=== PATIENT | male | born 1940 | race Caucasian/White ===

== ENCOUNTER 2021-03-24 17:26 | Inpatient (IN) | payer MEDICARE ==
[~2021-03-24] VITALS: Ht 160 cm; Wt 65.3 kg
[2021-03-24 17:59] LABS: BASOPHILS PERCENT AUTO 0 % (0-2); EOSINOPHILS PERCENT AUTO 0 % (0-6); Hematocrit 36.5 % (37.0-53.0); Hemoglobin 11.9 g/dL (13.5-17.5); IMMATURE GRAN ABSOLUTE AUTO 0.04 K/mm3 (0.00-0.10); IMMATURE GRAN PERCENT AUTO 1 % (0-1); LYMPHOCYTES ABSOLUTE AUTO 0.34 K/mm3 (0.84-5.20); LYMPHOCYTES PERCENT AUTO 5 % (21-46); MONOCYTES ABSOLUTE AUTO 0.51 K/mm3 (0.16-1.47); MONOCYTES PERCENT AUTO 7 % (4-13); Mean Corpuscular HGB 31.5 pg (26.0-34.0); Mean Corpuscular HGB Conc 32.6 g/dL (31.5-36.5); Mean Corpuscular Volume 97 fL (80-100); Mean Platelet Volume 10.5 fL (9.1-12.4); NEUTROPHILS ABSOLUTE AUTO 6.24 K/mm3 (1.96-9.15); NEUTROPHILS PERCENT AUTO 87 % (41-73); Platelet Count 212 K/mm3 (150-400); RDW Coefficient Variation 14.5 % (11.7-14.2); RDW Standard Deviation 51.3 fL (35.1-46.3); Red Blood Cell Count 3.78 M/mm3 (4.30-5.90); White Blood Cell Count 7.13 K/mm3 (4.00-11.30)
[2021-03-24 18:13] LABS: Albumin, Blood 2.9 g/dL (3.4-5.0); Albumin/Globulin Ratio 0.7 (0.8-1.8); Bilirubin, Total 0.7 mg/dL (0.1-1.0); Bun/Creatinine Ratio 32.9 (12.0-20.0); Calcium, Blood 8.4 mg/dL (8.5-10.1); Creatinine, Blood 1.46 mg/dL (0.60-1.20); Globulin, Blood 3.9 g/dL (2.2-4.0); Potassium, Blood 5.2 mmol/L (3.5-5.5); Total Protein, Blood 6.8 g/dL (6.4-8.2); Troponin I 0.091 ng/mL (0.000-0.040)
[2021-03-24] MEDS ORDERED: CARV6.25 PO (21:47)
[2021-03-24] MEDS ORDERED: Prinivil10 MG PO (21:47)
[2021-03-24] MEDS ORDERED: POTCHL20ER PO (21:48)
[2021-03-24] MEDS ORDERED: PRED AC-MOXI-NEP5 M1 LEFTEYE (21:48)
[2021-03-24 22:16] LABS: International Normalized Ratio 1.36
[2021-03-24] MEDS ORDERED: FURO20 PO (22:35)
--- NOTE | 2021-03-25 04:30 | NUR ---
SHIFT SUMMARY REPORT RECIEVED FROM SAMUEL Vargas RN, PATIENT TO ROOM FROM ED VIA STRETCHER @221 AND SLID TO THE BED. PATIENT ALERT AND ORIENTED X4 ANXIOUS AT TIMES. ABLE TO MOVE SELF BUT NEEDS VERBAL QUES AT TIMES. UPON ARRIVAL PATIENT ON 2L VIA NC 02 SATS 98%, PATIENT HAS EPISODES WHERE HE DESATS TO THE 70s, PATIENT PLACED ON CPAP 10 WITH 3L, TOLERATING WELL. DENIES CP, SR @70s-80s THROUGHT THE NIGHT. PATIENT INCONTINENT OF BLADDER, SPOKE WITH PATIENT ABOUT USING URINAL AND HE AGREED BUT THEN HAD ANOTHER INCONTINENT VOID. BRIEF CHANGES NEEDED. VSS, NO ACUTE CHANGES. CALL LIGHT IN REACH.
[2021-03-25 06:39] LABS: BASOPHILS ABSOLUTE AUTO 0.03 K/mm3 (0.00-0.23); BASOPHILS PERCENT AUTO 0 % (0-2); EOSINOPHILS PERCENT AUTO 0 % (0-6); Hematocrit 37.2 % (37.0-53.0); Hemoglobin 11.7 g/dL (13.5-17.5); IMMATURE GRAN ABSOLUTE AUTO 0.19 K/mm3 (0.00-0.10); IMMATURE GRAN PERCENT AUTO 1 % (0-1); LYMPHOCYTES ABSOLUTE AUTO 0.35 K/mm3 (0.84-5.20); LYMPHOCYTES PERCENT AUTO 2 % (21-46); MONOCYTES ABSOLUTE AUTO 1.12 K/mm3 (0.16-1.47); MONOCYTES PERCENT AUTO 5 % (4-13); Mean Corpuscular HGB 31.1 pg (26.0-34.0); Mean Corpuscular HGB Conc 31.5 g/dL (31.5-36.5); Mean Corpuscular Volume 99 fL (80-100); Mean Platelet Volume 10.5 fL (9.1-12.4); NEUTROPHILS ABSOLUTE AUTO 22.22 K/mm3 (1.96-9.15); NEUTROPHILS PERCENT AUTO 93 % (41-73); NRBC ABSOLUTE 0.03 K/mm3 (0.00-0.02); NRBC Auto 0.1 /100 WBC (0.0-0.2); Platelet Count 168 K/mm3 (150-400); RDW Coefficient Variation 14.6 % (11.7-14.2); RDW Standard Deviation 53.1 fL (35.1-46.3); Red Blood Cell Count 3.76 M/mm3 (4.30-5.90); White Blood Cell Count 23.91 K/mm3 (4.00-11.30)
[2021-03-25 06:49] LABS: Albumin, Blood 2.5 g/dL (3.4-5.0); Albumin/Globulin Ratio 0.6 (0.8-1.8); Bilirubin, Total 0.6 mg/dL (0.1-1.0); Bun/Creatinine Ratio 31.7 (12.0-20.0); Calcium, Blood 8.4 mg/dL (8.5-10.1); Creatinine, Blood 1.86 mg/dL (0.60-1.20); Globulin, Blood 3.9 g/dL (2.2-4.0); Potassium, Blood 5.2 mmol/L (3.5-5.5); Total Protein, Blood 6.4 g/dL (6.4-8.2); Troponin I 0.105 ng/mL (0.000-0.040)
[2021-03-25 11:48] LABS: Source, Urine Clean Catch
[2021-03-25 11:51] LABS: Appearance, Urine Clear (Clear); Bilirubin, Urine Neg (Neg); Blood, Urine Neg (Neg); Color, Urine Yellow (P-Yellow); Glucose Qualitative, Urine Neg (Neg); Ketones, Urine Neg (Neg); Leukocyte Esterase, Urine 1+ (Neg); Nitrite, Urine Neg (Neg); Protein, Urine 2+ (Neg); Specific Gravity, Urine 1.015 (1.003-1.022); Urobilinogen, Urine NORM (Normal)
[2021-03-25 12:27] LABS: Red Blood Cells, Urine 0-2 /hpf (0-2)
[2021-03-25 12:28] LABS: Bacteria Many /hpf; Squamous Epithelial Cells Few /hpf (Few)
--- NOTE | 2021-03-25 12:30 | NUR ---
TRANSFER FROM PCU PT TRANSFERED FROM PCU 12. 80YR MALE ADMITTED WITH CHF, PE AND COVID+. PT ARRIVED VIA BED AND WAS TRANSFERRED TO BED. PT ORIENTED TO ROOM, CALL LIGHT SYSTETM AND FAL PRECAUTIONS SAFETY MEASURES. PT HAD HEPARIN DRIP RUNNING AT 14UNITS AND VERIFIED WITH COUNTER WAITRESS/WAITER. PT A&O, SLOW TO RESPOND AT TIMES.CONDOM CATH IN PLACE DRAINING CLEAR YELLOW URINE. NO C/O PAIN. CONTACTED FOR ORDER CLARIFICATION, CONT PULSE OX D/C AND NPO STATUS CHANGED TO CARDIAC DIET. PT RESTING COMFPRTABLE WITH BED IN LOWEST POSITION AND CALL LIGHT WITHIN REACH
[2021-03-25 14:53] LABS: Troponin I 0.119 ng/mL (0.000-0.040)
--- NOTE | 2021-03-25 16:56 | NUR ---
SHIFT SUMMARY 1639 PT RESTED IN BED, NO C/O. PTT OF 130.6 RECIEVVED AND REPORTED TO PHARMACY. HEPARING DRIPP HELD FOR 1 HOUR AND RESTARTED AT 1639 AT A DECREASED RATE OF 12, VERIFIED WITH LUSTER REPAIRER. NO OTHER CHANGES THIS SHIFT
--- NOTE | 2021-03-26 05:17 | NUR ---
PATIENT ALERT AND RESPONSIVE. PATIENT CONTINUES ON HEPARIN DRIP, LAB CALLED AND REPORTED PTT OF GREATER THAN 139, PAHARMACY WAS NOTIFIED. PHARMACY REQUESTED TO HOLD THE DRIP FOR 1 HOUR. HEPARIN DRIP WAS RESTARTED AT A NEW RATE 10. PATIENT CONTINUE TO BE ANXIOUS ABOUT HIS 02 SATURATIONS. PATIENTS O2 SATS HAVE BEEN IN THE 90s. WILL CONTINUE TO MONITOR.
[2021-03-26 06:38] LABS: BASOPHILS ABSOLUTE AUTO 0.01 K/mm3 (0.00-0.23); BASOPHILS PERCENT AUTO 0 % (0-2); EOSINOPHILS PERCENT AUTO 0 % (0-6); Hematocrit 37.1 % (37.0-53.0); Hemoglobin 12.1 g/dL (13.5-17.5); IMMATURE GRAN ABSOLUTE AUTO 0.11 K/mm3 (0.00-0.10); IMMATURE GRAN PERCENT AUTO 1 % (0-1); LYMPHOCYTES ABSOLUTE AUTO 0.69 K/mm3 (0.84-5.20); LYMPHOCYTES PERCENT AUTO 5 % (21-46); MONOCYTES ABSOLUTE AUTO 0.38 K/mm3 (0.16-1.47); MONOCYTES PERCENT AUTO 3 % (4-13); Mean Corpuscular HGB 30.6 pg (26.0-34.0); Mean Corpuscular HGB Conc 32.6 g/dL (31.5-36.5); Mean Platelet Volume 10.9 fL (9.1-12.4); NEUTROPHILS ABSOLUTE AUTO 14.19 K/mm3 (1.96-9.15); NEUTROPHILS PERCENT AUTO 92 % (41-73); NRBC ABSOLUTE 0.03 K/mm3 (0.00-0.02); NRBC Auto 0.2 /100 WBC (0.0-0.2); Platelet Count 163 K/mm3 (150-400); RDW Coefficient Variation 14.5 % (11.7-14.2); RDW Standard Deviation 50.1 fL (35.1-46.3); Red Blood Cell Count 3.96 M/mm3 (4.30-5.90); White Blood Cell Count 15.38 K/mm3 (4.00-11.30)
[2021-03-26 06:39] LABS: Mean Corpuscular Volume 94 fL (80-100)
[2021-03-26 07:09] LABS: Albumin, Blood 2.6 g/dL (3.4-5.0); Albumin/Globulin Ratio 0.7 (0.8-1.8); Bilirubin, Total 0.7 mg/dL (0.1-1.0); Bun/Creatinine Ratio 37.4 (12.0-20.0); Calcium, Blood 8.1 mg/dL (8.5-10.1); Creatinine, Blood 2.14 mg/dL (0.60-1.20); Globulin, Blood 3.8 g/dL (2.2-4.0); Potassium, Blood 5.1 mmol/L (3.5-5.5); Total Protein, Blood 6.4 g/dL (6.4-8.2)
--- NOTE | 2021-03-26 13:06 | NUR ---
Patient is lying in bed and alert. Patient tells me about his COVID experience and then talks at length about his life history (including his 3 marriages, his [employer] sab[employer] background and his current living situation in [place], [place]). Patient talks about his fears of the virus and his concerns for his family. I normalize his fears, provide therapeutic listening and prayer. Patient responds well and shows signs of increased peace and being encouraged in his sabrina. I will continue to remain available to patient and family.
[2021-03-26 14:37] LABS: Source, Urine Catheter
[2021-03-26 14:43] LABS: Appearance, Urine Clear (Clear); Bilirubin, Urine Neg (Neg); Blood, Urine 2+ (Neg); Color, Urine Yellow (P-Yellow); Glucose Qualitative, Urine Neg (Neg); Ketones, Urine Neg (Neg); Leukocyte Esterase, Urine Neg (Neg); Nitrite, Urine Neg (Neg); Protein, Urine Neg (Neg); Specific Gravity, Urine 1.015 (1.003-1.022); Urobilinogen, Urine NORM (Normal)
[2021-03-26 15:07] LABS: Bacteria Many /hpf; Squamous Epithelial Cells Few /hpf (Few)
--- NOTE | 2021-03-26 18:29 | NUR ---
SHIFT SUMMARY PT RESTED IN BED, NO C/O. HEPARIN DRIP D/C THIS SHIFT AND NEW ORDERS RECIEVED. PT CONT TO BE ANXIOUS T/O SHIFT AND NEW ORDERS RECIEVED. PT MEDICATED WITH 0.5MG OF ATIVAN AND PT REPORTS RELIEF OF HIS ANXIETY. PT UP TO [facility] W FWW SEVERAL TIMES TODAY AND UP IN CHAIR FOR DINNER AND TOLERATED WELL. NO OTHER CHANGES THIS SHIFT.
--- NOTE | 2021-03-27 04:04 | NUR ---
PATIENT ALERT AND ORIEMTED TO SELF. PATIENT NOTED WITH RESTLESS, ANXIETY AND ATTEMPTING TO GET OUT OF BED. PATIENT WAS MEDICTED WITH IV ATIVAN. PATIENT BECAME LESS ANXIOUS AFTER TAKING THE ATIVAN. PATIENT SLEPT WELL, NO COMPLAIN VOICED. PATIENT WAS INCONTINENT OF URINE AND BM. WILL CONTINUE TO MONITOR.
[2021-03-27 04:39] LABS: BASOPHILS ABSOLUTE AUTO 0.01 K/mm3 (0.00-0.23); BASOPHILS PERCENT AUTO 0 % (0-2); EOSINOPHILS PERCENT AUTO 0 % (0-6); Hematocrit 32.1 % (37.0-53.0); Hemoglobin 10.3 g/dL (13.5-17.5); IMMATURE GRAN ABSOLUTE AUTO 0.06 K/mm3 (0.00-0.10); IMMATURE GRAN PERCENT AUTO 1 % (0-1); LYMPHOCYTES ABSOLUTE AUTO 0.24 K/mm3 (0.84-5.20); LYMPHOCYTES PERCENT AUTO 3 % (21-46); MONOCYTES ABSOLUTE AUTO 0.17 K/mm3 (0.16-1.47); MONOCYTES PERCENT AUTO 2 % (4-13); Mean Corpuscular HGB 30.7 pg (26.0-34.0); Mean Corpuscular HGB Conc 32.1 g/dL (31.5-36.5); Mean Corpuscular Volume 96 fL (80-100); Mean Platelet Volume 11.3 fL (9.1-12.4); NEUTROPHILS ABSOLUTE AUTO 7.94 K/mm3 (1.96-9.15); NEUTROPHILS PERCENT AUTO 94 % (41-73); NRBC ABSOLUTE 0.02 K/mm3 (0.00-0.02); NRBC Auto 0.2 /100 WBC (0.0-0.2); Platelet Count 131 K/mm3 (150-400); RDW Coefficient Variation 14.6 % (11.7-14.2); RDW Standard Deviation 50.9 fL (35.1-46.3); Red Blood Cell Count 3.35 M/mm3 (4.30-5.90); White Blood Cell Count 8.42 K/mm3 (4.00-11.30)
[2021-03-27 05:05] LABS: Albumin/Globulin Ratio 0.6 (0.8-1.8); Bilirubin, Total 0.5 mg/dL (0.1-1.0); Bun/Creatinine Ratio 45.1 (12.0-20.0); Calcium, Blood 7.3 mg/dL (8.5-10.1); Creatinine, Blood 1.93 mg/dL (0.60-1.20); Globulin, Blood 3.4 g/dL (2.2-4.0); Total Protein, Blood 5.4 g/dL (6.4-8.2)
--- NOTE | 2021-03-27 19:01 | NUR ---
Shift Summary, The patient is A/OX4 TO PERSON, PLACE, TIME AND EVENT. tHE PATIENT HAS BEEN PLEASENT AND COOPERATIVE WITH CARE. He has been trying to rest and sleep throughout the day and he has minor panic attacks at random and his breathing increases. this nurse was able to help him control his breathing by coaching him to take slow deep breaths. The patient is on 3lpm nc, has tight lower lung sounds. The patient has generalized weakness and is able to use the urinal. He is a 2 prsn assist to the B[facility] but due to weakness he may need to use the bedpan. The patient had a small BM this evening and he requested bm medication. The provider was called and bm meds were added. The patient has low intake and vegan ensures were given to the patient to increase intake. The Patient is currently sleeping in bed.
--- NOTE | 2021-03-27 19:49 | NUR ---
The daughter called the hospital and requested an update. Mateusz the patient gave permission to give the stepdaughter information concerning his med status.
[2021-03-28 04:51] LABS: BASOPHILS PERCENT AUTO 0 % (0-2); EOSINOPHILS PERCENT AUTO 0 % (0-6); Hematocrit 32.3 % (37.0-53.0); Hemoglobin 10.6 g/dL (13.5-17.5); IMMATURE GRAN ABSOLUTE AUTO 0.08 K/mm3 (0.00-0.10); IMMATURE GRAN PERCENT AUTO 1 % (0-1); LYMPHOCYTES PERCENT AUTO 2 % (21-46); MONOCYTES PERCENT AUTO 2 % (4-13); Mean Corpuscular HGB 30.6 pg (26.0-34.0); Mean Corpuscular HGB Conc 32.8 g/dL (31.5-36.5); Mean Corpuscular Volume 93 fL (80-100); NEUTROPHILS ABSOLUTE AUTO 7.86 K/mm3 (1.96-9.15); NEUTROPHILS PERCENT AUTO 94 % (41-73); NRBC ABSOLUTE 0.03 K/mm3 (0.00-0.02); NRBC Auto 0.4 /100 WBC (0.0-0.2); Platelet Count 140 K/mm3 (150-400); RDW Coefficient Variation 14.2 % (11.7-14.2); RDW Standard Deviation 48.1 fL (35.1-46.3); Red Blood Cell Count 3.46 M/mm3 (4.30-5.90); White Blood Cell Count 8.34 K/mm3 (4.00-11.30)
[2021-03-28 05:12] LABS: Albumin, Blood 2.2 g/dL (3.4-5.0); Anion Gap 8 mmol/L (6-16); Blood Urea Nitrogen 84 mg/dL (8-24); Bun/Creatinine Ratio 54.5 (12.0-20.0); CO2, Blood 22 mmol/L (21-32); Calcium, Blood 7.6 mg/dL (8.5-10.1); Chloride, Blood 105 mmol/L (98-108); Creatinine, Blood 1.54 mg/dL (0.60-1.20); Glomerular Filtration Rate 44 (60-); Glucose, Blood 219 mg/dL (70-99); Phosphorus, Blood 2.8 mg/dL (2.5-4.9); Potassium, Blood 5.1 mmol/L (3.5-5.5); Sodium, Blood 135 mmol/L (136-145)
--- NOTE | 2021-03-28 05:12 | NUR ---
PATIENT IS ALERT AND RESPONSIVE. PATIENT HAS GENERALIZED WEAKNESS AND CONTINUE TO REQUIRE 2 PERSONS ASSIT WITH PATIENT CARE. PATIENT NOTED WITH GENERALIZED ANXIETY AND RESTLESSNESS. PATIENT WAS MEDICATED WITH LORAZEPAM 0.5MG WITH GOOD EFFECT. PATIENT WAS INCONTINENT OF URINE XLARGE AMOUNT, WITH NO BM. PATIENT CONTINUES ON 02 AT 3L SALIN LOCK. WILL CONTINUE TO MONITOR.
[2021-03-28] MEDS ORDERED: DECADRON6 M1 PO (12:25)
[2021-03-28] MEDS ORDERED: INSULANPEN SC (12:25)
[2021-03-28] MEDS ORDERED: DOCUZEN 8.6-501 EACH PO (12:25)
[2021-03-28] MEDS ORDERED: HUMALOG KW100 UNIT/1 SC (12:26)
--- NOTE | 2021-03-28 14:53 | NUR ---
Discharge Summary, The patient is A/OX4 to person, place, time and event. The patient is pleasent and cooperative with care. The patient responds willianley. He is a bed bound patient and bedpan and depends were used. the patient was incontinent of urine. He was able to stand but was very weak and was unable to ambulate well. The patient was on 3lpm NC >98% o2 he denied SOB or chest pain. The patient's lungs were tight in the bases and he had an unproductive cough. He did increase his consumption for breakfast and lunch and drank the vegan ensure. The patient was reminded to exercise while in bed per PT/OT. Report was given on patient to Yanique RN and discharge paperwork was given to EMS. The patient was infomred about the transfer to [facility] and he stated he was happy it was not [facility]. The patient denied having any questions or concerns about the transfer. The patient was taken by EMS off the floor via gurney.
== END 2021-03-28 13:42 | DRG 177 ==
LOC: ER 17:26 → MEDS 21:46 → PCU 21:46 → MEDS 03-25 12:56
PROVIDERS: Family Medicine; Physician Assistant; ADMIT Internal Medicine
PROC: 3E0333Z Introduction of Anti-inflammatory into Peripheral Vein, Percutaneous Approach (ICD-10-PCS; principal; 2021-03-24)
PROC: XW033E5 Introduction of Remdesivir Anti-infective into Peripheral Vein, Percutaneous Approach, New Technology Group 5 (ICD-10-PCS; 2021-03-24)
PROC: 3E02340 Introduction of Influenza Vaccine into Muscle, Percutaneous Approach (ICD-10-PCS; 2021-03-24)
PROC: 8E0ZXY6 Isolation (ICD-10-PCS; 2021-03-24)
PROC: XW033G6 Introduction of REGN-COV2 Monoclonal Antibody into Peripheral Vein, Percutaneous Approach, New Technology Group 6 (ICD-10-PCS; 2021-03-24)
DX: U07.1 COVID-19 (principal); J96.01 Acute respiratory failure with hypoxia; J12.82 Pneumonia due to coronavirus disease 2019; I50.23 Acute on chronic systolic (congestive) heart failure; I21.A1 Myocardial infarction type 2; N39.0 Urinary tract infection, site not specified; I13.0 Hypertensive heart and chronic kidney disease with heart failure and stage 1 through stage 4 chronic kidney disease, or unspecified chronic kidney disease; N17.9 Acute kidney failure, unspecified; N18.2 Chronic kidney disease, stage 2 (mild); Z79.899 Other long term (current) drug therapy; Z88.0 Allergy status to penicillin; Z88.8 Allergy status to other drugs, medicaments and biological substances; E66.3 Overweight; D72.829 Elevated white blood cell count, unspecified; Z86.711 Personal history of pulmonary embolism; B96.1 Klebsiella pneumoniae [K. pneumoniae] as the cause of diseases classified elsewhere; Z91.012 Allergy to eggs; E11.65 Type 2 diabetes mellitus with hyperglycemia; E11.22 Type 2 diabetes mellitus with diabetic chronic kidney disease; D72.828 Other elevated white blood cell count; T38.0X5A Adverse effect of glucocorticoids and synthetic analogues, initial encounter; Z68.25 Body mass index [BMI] 25.0-25.9, adult
CPT/HCPCS: 36415; 71260; 80053; 80069; 81001; 82550; 82947; 83036; 83880; 84145; 84484; 85025; 85610; 85730; 87077; 87086; 87186; 93005; 93010; 94660; 94762; 96374; 96375; 97110; 97162; 97166; 97530; 97535; 99285-25; A9270; C8929; J0696; J1100; J1644; J1815; J1940; J2060; J7040; M0243; Q0243; Q9957; Q9967